=== PATIENT | male | born 1975 | race African-American/Black ===

== ENCOUNTER 2019-03-10 23:25 | Emergency (ER) | payer MEDICAID ==
[~2019-03-10] VITALS: Ht 188 cm; Wt 82.0 kg
[2019-03-10 23:56] VITALS: BP 155/96
== END 2019-03-11 01:11 | disposition left against medical advice (07) ==
LOC: ER 23:25
DX: Z53.21 Procedure and treatment not carried out due to patient leaving prior to being seen by health care provider (principal)